=== PATIENT | male | born 2000 | race Caucasian/White ===

== ENCOUNTER 2024-02-21 19:28 | Emergency (ER) | payer OTHER, SELFPAY ==
[2024-02-21 19:30] VITALS: BP 145/89; PULSE 88; TEMP 36.8; O2SAT 98; BMI 24.4
--- NOTE | 2024-02-21 19:38 | XR_ITS ---
The [place] [id number] Patient Name: DEBBY FREEMAN MRN: [id number] date: 2000 Sex: M Assigned Patient Location: ER Current Patient Location: Accession/Order Number: [id number] Exam Date: 02/21/2024 19:53 Report Date: 02/21/2024 21:18 At the request of: DOYLE VENTURA Procedure: XR hand RT min 3V EXAM: XR hand RT min 3V , 02/21/2024 HISTORY: trauma COMPARISON: None. TECHNIQUE: X-rays of the right hand, 3 views. FINDINGS: Nondisplaced fracture of the proximal phalanx of the first digit, involving the interphalangeal joint. The remaining osseous structures are unremarkable. The bones are well-mineralized. XR/XR hand RT min 3V IMPRESSION: Nondisplaced fracture of the proximal phalanx first digit, right hand. Electronically authenticated by: DUSTY HAYWARD Date: 02/21/2024 21:18
--- NOTE | 2024-02-21 19:50 | ED_ITS ---
HPI - Wound/Laceration General Chief Complaint: Wound/Laceration Stated Complaint: UE INJURY Time Seen by Provider: 02/21/24 19:32 Source: patient Mode of arrival: walk-in Limitations: no limitations History of Present Illness HPI narrative: patient was using a shovel and his friend was using a dull pick ax to did a hole. Friend mistakenly struck the top of his right thumb. now presents with laceration. denies numbness of the thumb. Able to flex and extend but painful. Denies other injury Related Data Home Medications ?Medication ?Instructions ?Recorded ?Confirmed No Known Home Medications 02/21/24 02/21/24 Allergies Allergy/AdvReac Type Severity Reaction Status Date / Time No Known Drug Allergies Allergy Verified 02/21/24 19:34 Review of Systems ROS Status of ROS 10 or more systems reviewed and unremark able except as noted in history and below Exam Constitutional Vital Signs, click to edit/add: Last Vital Signs Temp 98.2 F 02/21/24 19:30 Pulse 88 02/21/24 19:30 Resp 18 02/21/24 19:30 BP 145/89 H 02/21/24 19:30 Pulse Ox 98 02/21/24 19:30 O2 Del Method Room Air 02/21/24 19:30 Common normals: no apparent distress, average body habitus, oriented x3, no limitations, healthy appearing, alert and well nourished [facility] Common normals: normocephalic and head/scalp atraumatic Eye Common normals: EOMs intact bilaterally and conjunctivae normal Respiratory Common normals: normal respiratory effort, no retractions and no use of accessory muscles Extremity Other: superficial cut(4mm) dorsum right thumb. cut does not extend the the epithelia layer. dermis not exposed. no subungual hematoma. minor enlargement of the thumb. Neuro Common normals: oriented x3, CN's II-XII intact bilaterally, moves all extremities, no focal motor deficits and no sensory deficits noted Psych Appearance: grossly normal Course Vital Signs Vital signs: Vital Signs Temperature 98.2 F 02/21/24 19:30 Pulse Rate 88 02/21/24 19:30 Respiratory Rate 18 02/21/24 19:30 Blood Pressure 145/89 H 02/21/24 19:30 Pulse Oximetry 98 02/21/24 19:30 Oxygen Delivery Method Room Air 02/21/24 19:30 Temperature 98.2 F 02/21/24 19:30 Pulse Rate 88 02/21/24 19:30 Respiratory Rate 18 02/21/24 19:30 Blood Pressure 145/89 H 02/21/24 19:30 Pulse Oximetry 98 02/21/24 19:30 Oxygen Delivery Method Room Air 02/21/24 19:30 MDM - Wound/Laceration MDM Narrative Medical decision making narrative: patient fortunate he was struck by blunt ax on top of his right thumb as opposed to a sharp edge ax. his cut is minor and will not require repair. xray with nondisplaced fracture distal mid phalanx. finger cleaned. tetanus UTD. finger dressed and finger splint applied by nursing. Patient give dose of augmentin and discharged home to follow up with orthopedics Discharge Plan Discharge Stand Alone Forms: Work/School Release, Portal Instructions Chief Complaint: Wound/Laceration Clinical Impression: Laceration, Fracture of thumb, right open Patient Disposition: Home, Self-Care Prescriptions / Home Meds: No Action No Known Home Medications Print Language: Luxembourgish Instructions: Thumb Fracture (ED), Laceration Without Closure (ED) Additional Instructions: follow up with orthopedics early next week Referrals: ROMY SAWYER [Primary Care Provider] - 1 week
--- NOTE | 2024-02-21 19:51 | PC.NURSE ---
Pt has small abrasions and a 2cm laceration to right thumb. Pt reports a pickaxe smashed into his thumb on his hand that was holding a shovel. Pt reports being utd on tetanus.
[2024-02-21] MEDS: AMOXICILLIN/POTASSIUM CLAV 1 TAB TABLET PO (20:22)
[2024-02-21 20:33] VITALS: BP 136/86; PULSE 87; O2SAT 98
== END 2024-02-21 20:33 | disposition home or self-care (01) ==
PROVIDERS: Emergency Provider Internal Medicine; PCP Nurse Practitioner Family
DX: S62.524B Nondisplaced fracture of distal phalanx of right thumb, initial encounter for open fracture (principal); W22.8XXA Striking against or struck by other objects, initial encounter
CPT/HCPCS: 29130; 73130; 99283

== ENCOUNTER 2024-03-10 08:10 | Outpatient (OUT) | payer OTHER, SELFPAY ==
--- NOTE | 2024-03-10 | XR_ITS ---
The [address] [address] Patient Name: DEBBY FREEMAN MRN: [id number] date: 2000 Sex: M Assigned Patient Location: Current Patient Location: Accession/Order Number: [id number] Exam Date: 03/10/2024 08:15 Report Date: 03/11/2024 08:27 At the request of: YEN HUMMEL Procedure: XR hand RT min 3V PROCEDURE: XR hand RT min 3V HISTORY: RIGHT HAND PAIN ; distal thumb pain following injury COMPARISON: XR hand 02/21/2024 FINDINGS: BONES:Thin, nondisplaced longitudinal fracture line through medial aspect of head of first proximal phalanx extending to the articular surface. SOFT TISSUES:No visible soft tissue swelling. EFFUSION:None visible. OTHER: Negative. XR/XR hand RT min 3V IMPRESSION: 1. Nondisplaced fracture line within first proximal phalanx versus prominent artifact from trabecula. Electronically authenticated by: YEN OJEDA Date: 03/11/2024 08:27
== END 2024-03-10 08:11 | disposition home or self-care (01) ==
LOC: EC 08:11
PROVIDERS: PCP Nurse Practitioner Family; Visit Provider Orthopaedic Surgery
DX: S62.514D Nondisplaced fracture of proximal phalanx of right thumb, subsequent encounter for fracture with routine healing (principal)
CPT/HCPCS: 73130

== ENCOUNTER 2024-04-14 07:51 | Outpatient (OUT) | payer OTHER, SELFPAY ==
--- NOTE | 2024-04-14 | XR_ITS ---
The [address] [address] Patient Name: DEBBY FREEMAN MRN: [id number] date: 2000 Sex: M Assigned Patient Location: Current Patient Location: Accession/Order Number: [id number] Exam Date: 04/14/2024 07:53 Report Date: 04/15/2024 07:07 At the request of: YEN HUMMEL Procedure: XR hand RT min 3V PROCEDURE: XR hand RT min 3V COMPARISON: 03/10/2024 HISTORY: RIGHT HAND PAIN FINDINGS: BONES:Subtle sclerosis distal first proximal phalanx consistent with a healing fracture with bony bridging. SOFT TISSUES:Negative. No visible soft tissue swelling. EFFUSION:None visible. OTHER: Negative. XR/XR hand RT min 3V IMPRESSION: Stable healing fracture of the first proximal phalanx. The fracture plane is poorly visualized on the current exam Electronically authenticated by: BEKAH STEELE Date: 04/15/2024 07:07
--- OUTSIDE RECORDS SUMMARY | 2024-04-14 07:54 | XMS_ITS | CCD ---
Author Organization [facility] [employer] [facility] Care Team Providers Care Ecommerce Manager Name Role Phone LYNETTE GARAY Unavailable Unavailable CLEMENTINA, ARIADNA Unavailable Unavailable HAY, ARIADNA Unavailable Unavailable HAY, ARIADNA Unavailable Unavailable Encounters Encounter Date Encounter Type Care Provider Facility Start: 06-03-2017 End: 06-03-2017 Ambulatory LYNETTE GARAY Facility: Payers Date Payer Category Payer Unknown [id number] Summary Purpose Family History No Family History Records Found Advance Directives No Advanced Directives Records Found Additional Source Comments (unrecognized sect ion and content) No Status Records Found INFORMATION SOURCE (unrecogn ized section and content) DATE CREATED AUTHOR 12/25/2017 [facility] FOR RECORDS PERTAINING TO PATIENTS WHO ARE OR HAVE BEEN ENROLLED IN A CHEMICAL DEPENDENCY/SUBSTANCEABUSE PROGRAM, SOME INFORMATION MAY BE OMITTED. This clinical summary was aggregated from multiple sources. Caution should be exercised in using it in the provision of clinical care. This summary normalizes information from multiple sources, and as a consequence, information in this document may materially change the coding, format and clinical context of patient data. In addition, data may be omitted in some cases. CLINICAL DECISIONS SHOULD BE BASED ON THE PRIMARY CLINICAL RECORDS. [facility] [employer] [facility]. provides no warranty or guarantee of the accuracy or completeness of information in this document.
== END 2024-04-14 07:52 | disposition home or self-care (01) ==
LOC: EC 07:51
PROVIDERS: PCP Nurse Practitioner Family; Visit Provider Orthopaedic Surgery
DX: S62.524A Nondisplaced fracture of distal phalanx of right thumb, initial encounter for closed fracture (principal)
CPT/HCPCS: 73130